=== PATIENT | male | born 1960 | race Caucasian/White ===

== ENCOUNTER 2021-02-02 17:35 | Inpatient (IN) | payer OTHER, SELFPAY ==
[2021-02-02] MEDS ORDERED: Fentanyl 100 MCG/2 ML VIAL ONE (18:14)
[2021-02-02 18:26] LABS: #Eosinphils 0.1 thou/uL (0.0-0.7); #Lymphocytes 3.5 thou/uL (1.20-3.40); #Neutrophils 14.7 thou/uL (1.40-6.50); %Basophils 0.1 % (0.0-1.0); %Eosinophils 0.7 % (0.0-10.0); %Lymphocytes 17.9 % (21.0-51.0); %Monocytes 5.1 % (0.0-10.0); %Neutrophils 76.2 % (42.0-75.0); Hemoglobin 14.2 g/dL (14.0-18.0); Mean Corpuscular HGB CONC 33.9 g/dL (32.0-36.0); Mean Corpuscular Hemoglobin 34.4 pg (27.0-31.0); Mean Platelet Volume 6.6 fL (7.4-10.4); Platelet Count 389 thou/uL (130-400); RBC Distribution Width 12.6 % (11.5-14.5); Red Blood Cell (RBC) Count 4.12 mill/uL (4.70-6.10); White Blood Cell (WBC) Count 19.3 thou/uL (4.8-10.8)
[2021-02-02 18:46] LABS: ALT (SGPT) 297 U/L (8-55); AST (SGOT) 341 U/L (5-34); Albumin 3.9 g/dL (3.4-4.8); Alkaline Phosphatase 69 U/L (40-110); Anion Gap 19 mmol/L (10-20); BUN (Urea Nitrogen) 12 mg/dL (8.4-25.7); Bilirubin, Total 0.3 mg/dL (0.2-1.2); Calc. Creatinine Clearance 0 mL/min (70-130); Calcium 8.8 mg/dL (7.8-10.44); Carbon Dioxide 20 mmol/L (23-31); Chloride 99 mmol/L (98-107); Globulin 2.8 g/dL (2.4-3.5); Glucose 294 mg/dL (80-115); Lipase 132 U/L (8-78); Potassium 3.3 mmol/L (3.5-5.1); Protein, Total 6.7 g/dL (5.8-8.1); Sodium 135 mmol/L (136-145)
[2021-02-02] MEDS ORDERED: Boostrix 0.5 ML (Tdap) VIAL ONE (18:46)
[2021-02-02 20:52] LABS: Bacteria/HPF None Seen HPF (None Seen); Bilirubin Negative (Negative); Blood, Urine 3+ (Negative); Clarity Clear (Clear); Glucose, Urine (Dipstick) 500 mg/dL (Negative); Ketone, Urine Trace mg/dL (Negative); Leukocyte Negative Leu/uL (Negative); Nitrite Negative (Negative); Protein, Urine (Dipstick) 30 mg/dL (Neg-Trace); RBC/HPF 0-3 HPF (0-3); Squamous Epithelial None Seen HPF (0-3); Urobilinogen Normal mg/dL (Less than 2)
[2021-02-02 20:59] LABS: Amphetamine Not Detected (NotDetected); Barbiturates Screen Not Detected (NotDetected); Benzodiazepine Screen Not Detected (NotDetected); Cocaine Metabolite Screen Not Detected (NotDetected); Methadone Not Detected (NotDetected); Methamphetamine Not Detected (NotDetected); Opiate Screen Not Detected (NotDetected); Oxycodone Screen Not Detected (NotDetected); Phencyclidine (PCP) Not Detected (NotDetected); THC/Cannabinoid Screen Detected (NotDetected); Tricyclic Screen Not Detected (NotDetected)
[2021-02-02 21:04] LABS: Lactic Acid 3.9 mmol/L (0.5-2.2)
[2021-02-02 21:06] LABS: CKMB 17.5 ng/mL (0-6.6)
[2021-02-02] MEDS ORDERED: Dextrose 5% in Water 1,000 ML IV PRN (21:29)
[2021-02-02] MEDS ORDERED: Dextrose 50% Abboject 50 ML SYRINGE SLOW IVP PRN (21:29)
[2021-02-02] MEDS ORDERED: Morphine 4 MG/ML VIAL SLOW IVP PRN (21:29)
[2021-02-02] MEDS ORDERED: Ondansetron PF 4 MG/2 ML Vial IVP PRN (21:29)
[2021-02-02] MEDS ORDERED: traMADol HCl 50 MG TAB PO PRN (21:34)
[2021-02-02] MEDS ORDERED: Cyclobenzaprine 10 MG TAB PO PRN (21:34)
[2021-02-02 22:10] LABS: Magnesium 2.1 mg/dL (1.6-2.6); Phosphorus 4.7 mg/dL (2.3-4.7)
[2021-02-02 23:14] VITALS: BMI 26.4
[2021-02-02] MEDS ORDERED: Potassium Chloride 40 MEQ in Sodium Chloride 0.9% 250 ML 250 ML IVPB SCH (23:30)
[2021-02-03] MEDS: Acetaminophen 500 MG TAB PO SCH ×4 (00:03→18:01)
[2021-02-03] MEDS: Sodium Chloride 0.9% 1,000 ML IV SCH ×3 (00:09→16:06)
[2021-02-03] MEDS: Potassium Chloride 20 MEQ in Premix Bag 1 BAG IVPB SCH ×3 (00:11→02:35)
[2021-02-03 00:14] LABS: Troponin I 0.312 ng/mL (< 0.028)
[2021-02-03 04:21] LABS: #Lymphocytes 1.2 thou/uL (1.20-3.40); #Monocytes 1.6 thou/uL (0.11-0.59); #Neutrophils 11.1 thou/uL (1.40-6.50); %Basophils 0.1 % (0.0-1.0); %Eosinophils 0.2 % (0.0-10.0); %Lymphocytes 8.3 % (21.0-51.0); %Monocytes 11.3 % (0.0-10.0); %Neutrophils 80.1 % (42.0-75.0); Hemoglobin 12.8 g/dL (14.0-18.0); Mean Corpuscular HGB CONC 33.4 g/dL (32.0-36.0); Mean Corpuscular Hemoglobin 33.8 pg (27.0-31.0); Mean Platelet Volume 6.3 fL (7.4-10.4); Platelet Count 332 thou/uL (130-400); RBC Distribution Width 12.8 % (11.5-14.5); Red Blood Cell (RBC) Count 3.78 mill/uL (4.70-6.10); White Blood Cell (WBC) Count 13.9 thou/uL (4.8-10.8)
[2021-02-03 04:39] LABS: Lactic Acid 1.3 mmol/L (0.5-2.2)
[2021-02-03 05:05] LABS: ALT (SGPT) 247 U/L (8-55); AST (SGOT) 386 U/L (5-34); Albumin 3.6 g/dL (3.4-4.8); Alkaline Phosphatase 57 U/L (40-110); Anion Gap 12 mmol/L (10-20); BUN (Urea Nitrogen) 8 mg/dL (8.4-25.7); Bilirubin, Total 0.4 mg/dL (0.2-1.2); Calc. Creatinine Clearance 135 mL/min (70-130); Calcium 8.6 mg/dL (7.8-10.44); Carbon Dioxide 20 mmol/L (23-31); Chloride 106 mmol/L (98-107); Globulin 2.5 g/dL (2.4-3.5); Glucose 217 mg/dL (80-115); Magnesium 1.7 mg/dL (1.6-2.6); Phosphorus 2.9 mg/dL (2.3-4.7); Protein, Total 6.1 g/dL (5.8-8.1); Sodium 134 mmol/L (136-145)
[2021-02-03] MEDS: Oxazepam 10 MG CAP PO SCH ×3 (06:57→22:35)
[2021-02-03 07:56] LABS: Troponin I 0.249 ng/mL (< 0.028)
[2021-02-03] MEDS: traMADol HCl 50 MG TAB PO PRN ×2 (09:14→14:44)
[2021-02-03] MEDS: hydrALAZINE 20 MG/ML VIAL SLOW IVP PRN ×2 (09:14→13:30)
[2021-02-03] MEDS: Thiamine 100 MG TAB PO SCH (09:14)
[2021-02-03] MEDS: Folic Acid 1 MG TAB PO SCH (09:14)
[2021-02-03] MEDS: Famotidine 20 MG TAB PO SCH ×2 (09:14→21:16)
[2021-02-03] MEDS: Multivitamin W/ Minerals 1 TAB PO SCH (09:14)
[2021-02-03] MEDS: Gabapentin 100 MG CAP PO SCH ×2 (09:14→13:29)
[2021-02-03] MEDS: Polyethylene Glycol 3350 17 GM Packet PO SCH (09:15)
[2021-02-03] MEDS: Senokot S 8.6-50 MG TAB PO SCH ×2 (09:15→21:16)
[2021-02-03] MEDS ORDERED: Lisinopril 20 MG TAB PO SCH (09:30)
[2021-02-03] MEDS ORDERED: FLU VACC QS2021-22(6MOS UP)/PF 60 MCG/0.5 ML SYRINGE IM ONE (12:00)
[2021-02-03 12:44] LABS: Troponin I 0.103 ng/mL (< 0.028)
[2021-02-03 13:28] LABS: SARS-CoV-2 PCR by NAA Not Detected (NotDetected)
[2021-02-03] MEDS: Lisinopril 20 MG TAB PO SCH (21:14)
[2021-02-03] MEDS: Gabapentin 300 MG CAP PO SCH (21:24)
[2021-02-03] MEDS: traMADol HCl 50 MG TAB PO SCH (22:34)
[2021-02-03] MEDS: Ibuprofen 200 MG TAB PO SCH (22:35)
[2021-02-04] MEDS: Acetaminophen 500 MG TAB PO SCH ×4 (01:45→18:33)
[2021-02-04] MEDS: traMADol HCl 50 MG TAB PO SCH ×4 (04:14→21:49)
[2021-02-04] MEDS: Ibuprofen 200 MG TAB PO SCH ×3 (06:12→21:36)
[2021-02-04] MEDS: Oxazepam 10 MG CAP PO SCH ×3 (06:12→21:52)
[2021-02-04] MEDS: Enoxaparin Sodium 40 MG/0.4 ML SYRINGE SC SCH (08:19)
[2021-02-04] MEDS: Gabapentin 300 MG CAP PO SCH ×3 (08:20→21:35)
[2021-02-04] MEDS: Polyethylene Glycol 3350 17 GM Packet PO SCH (08:20)
[2021-02-04] MEDS: Thiamine 100 MG TAB PO SCH (08:20)
[2021-02-04] MEDS: Senokot S 8.6-50 MG TAB PO SCH ×2 (08:20→21:39)
[2021-02-04] MEDS: Lisinopril 20 MG TAB PO SCH ×2 (08:20→21:38)
[2021-02-04] MEDS: Folic Acid 1 MG TAB PO SCH (08:21)
[2021-02-04] MEDS: Multivitamin W/ Minerals 1 TAB PO SCH (08:21)
[2021-02-04] MEDS: Famotidine 20 MG TAB PO SCH (08:21)
[2021-02-04] MEDS ORDERED: Lisinopril 20 MG TAB PO SCH (09:00)
[2021-02-04] MEDS ORDERED: Bacitracin 1 PK TOP SCH (15:00)
[2021-02-04] MEDS: Bacitracin 1 PK TOP SCH (21:35)
[2021-02-05] MEDS: Acetaminophen 500 MG TAB PO SCH ×2 (00:26→04:56)
[2021-02-05] MEDS: traMADol HCl 50 MG TAB PO SCH ×2 (04:55→09:43)
[2021-02-05] MEDS: Ibuprofen 200 MG TAB PO SCH (04:57)
[2021-02-05] MEDS: Oxazepam 10 MG CAP PO SCH (04:58)
[2021-02-05] MEDS: Enoxaparin Sodium 40 MG/0.4 ML SYRINGE SC SCH (09:41)
[2021-02-05] MEDS: Folic Acid 1 MG TAB PO SCH (09:41)
[2021-02-05] MEDS: Polyethylene Glycol 3350 17 GM Packet PO SCH (09:41)
[2021-02-05] MEDS: Senokot S 8.6-50 MG TAB PO SCH (09:41)
[2021-02-05] MEDS: Gabapentin 300 MG CAP PO SCH (09:42)
[2021-02-05] MEDS: Thiamine 100 MG TAB PO SCH (09:43)
[2021-02-05] MEDS: Lisinopril 20 MG TAB PO SCH (09:43)
[2021-02-05] MEDS: Multivitamin W/ Minerals 1 TAB PO SCH (09:43)
[2021-02-05] MEDS: Bacitracin 1 PK TOP SCH (09:45)
[2021-02-05 10:55] VITALS: BP 132/81; TEMP 98
== END 2021-02-05 14:30 | disposition home or self-care (01) | DRG 315 ==
LOC: ERS 17:35 → 2NO 21:29 → OBSVTOIN 02-03 14:11 → SURG B 02-04 18:45 → 2NO 02-04 18:49 → SURG B 02-04 19:34
PROVIDERS: ADMIT Surgery; ATTEND Surgery
DX: S26.91XA Contusion of heart, unspecified with or without hemopericardium, initial encounter (principal); Z20.822 Contact with and (suspected) exposure to COVID-19; Z23 Encounter for immunization; S22.21XA Fracture of manubrium, initial encounter for closed fracture; S27.321A Contusion of lung, unilateral, initial encounter; F10.129 Alcohol abuse with intoxication, unspecified; R91.8 Other nonspecific abnormal finding of lung field; E87.6 Hypokalemia; R74.01 Elevation of levels of liver transaminase levels; I10 Essential (primary) hypertension; E78.5 Hyperlipidemia, unspecified; R77.8 Other specified abnormalities of plasma proteins; V29.40XA Motorcycle driver injured in collision with unspecified motor vehicles in traffic accident, initial encounter; Y92.410 Unspecified street and highway as the place of occurrence of the external cause; S32.592G Other specified fracture of left pubis, subsequent encounter for fracture with delayed healing; Z90.89 Acquired absence of other organs
CPT/HCPCS: 36415; 70450; 71045; 71260; 72125; 72170; 74177; 80053; 80306; 80307; 81003; 81015; 82553; 83605; 83690; 83735; 84100; 84484; 85025; 90715; 93005; 93010; 93306; G0390; J0360; J1650; J3010; J3480; J7050; U0003; U0005